=== PATIENT | female | born 1990 | race Two or more races ===

== ENCOUNTER 2023-03-30 23:08 | Emergency (ER) | payer OTHER ==
[~2023-03-30] VITALS: Ht 162.6 cm; Wt 73.9 kg
[2023-03-31] MEDS ORDERED: KETOROLAC TROMETHAMINE 60 MG VIAL IM STA (03:23)
== END 2023-03-31 06:40 | disposition home or self-care (01) ==
LOC: ER 23:09
DX: S92.301A Fracture of unspecified metatarsal bone(s), right foot, initial encounter for closed fracture (principal); S93.401A Sprain of unspecified ligament of right ankle, initial encounter; W50.2XXA Accidental twist by another person, initial encounter; Y93.89 Activity, other specified; Y92.89 Other specified places as the place of occurrence of the external cause; Y99.8 Other external cause status; Z88.2 Allergy status to sulfonamides